=== PATIENT | female | born 1940 | race Caucasian/White ===

== ENCOUNTER 2017-06-25 10:46 | Day surgery (SDC) | payer MEDICARE, OTHER ==
[2017-06-25] VITALS (13 sets, daily range): BP systolic 101–130; BP diastolic 40–82
[~2017-06-25] VITALS: Ht 167.6 cm; Wt 78.6 kg
[2017-06-25] MEDS ORDERED: MESSAGE TO PHARMACY PO ONE (11:20)
[2017-06-25] MEDS ORDERED: nitroGLYCERIN 0.4mg SUBLingual tab SL PRN (11:20)
[2017-06-25] MEDS ORDERED: diphenhydrAMINE 25mg capsule PO PRN (11:20)
[2017-06-25] MEDS ORDERED: normal saline 1000ml 1,000 ML IV SCH ×2 (11:20→13:50)
[2017-06-25] MEDS ORDERED: insulin Lispro (HumaLOG) vial - multi-dose SQ SCH (11:20)
[2017-06-25] MEDS ORDERED: LORazepam 0.5 MG tablet PO PRN (11:20)
[2017-06-25] MEDS ORDERED: dextrose 50%-water 50ml dispensing syringe IV PRN ×2 (11:20)
[2017-06-25] MEDS ORDERED: glucagon, human recombinant 1mg kit SUBCUT PRN (11:20)
[2017-06-25] MEDS ORDERED: dextrose ORAL solution 15 GM/59 ML bottle PO PRN ×2 (11:20)
[2017-06-25] MEDS ORDERED: LIDOcaine 1% (10mg/ml) 2ml vial SQ ONE (11:30)
[2017-06-25] MEDS ORDERED: midazolam 2 mg/2 ml injection ONE (12:00)
[2017-06-25] MEDS ORDERED: iohexol 350 MG/ML 50ML vial IV ONE (12:00)
[2017-06-25] MEDS ORDERED: fentaNYL/PF 50MCG/1 ML 2ML syringe ONE (12:00)
[2017-06-25] MEDS ORDERED: iohexol 350MG/ML 100ml bottle IV ONE (12:00)
[2017-06-25] MEDS ORDERED: LIDOcaine 1% 30ml preserv. free vial ONE (12:02)
[2017-06-25] MEDS ORDERED: ODANSETRON PO (12:28)
[2017-06-25] MEDS ORDERED: FURO-150 PO (12:28)
[2017-06-25] MEDS ORDERED: METH2.5T PO (12:28)
[2017-06-25] MEDS ORDERED: ZINC PO (12:28)
[2017-06-25] MEDS ORDERED: COU1T PO (12:28)
[2017-06-25] MEDS ORDERED: GABA-532 PO (12:28)
[2017-06-25] MEDS ORDERED: MAG PO (12:28)
[2017-06-25] MEDS ORDERED: AMIT-189 PO (12:28)
[2017-06-25] MEDS ORDERED: POTA10TA19 PO (12:28)
[2017-06-25] MEDS ORDERED: CHOL10002 PO (12:28)
[2017-06-25] MEDS ORDERED: LEVO250T58 PO (12:28)
[2017-06-25] MEDS ORDERED: SIMV10TA2 PO (12:28)
[2017-06-25] MEDS ORDERED: RAME8TAB15 PO (12:28)
[2017-06-25] MEDS ORDERED: [UNRECOGNIZED DRUG - OTHER] IV (12:28)
[2017-06-25] MEDS ORDERED: TRAM50TA2 PO (12:28)
[2017-06-25] MEDS ORDERED: METF500T PO (12:28)
[2017-06-25] MEDS ORDERED: DOXY100C2 PO (12:28)
[2017-06-25] MEDS ORDERED: CYAN100070 PO (12:28)
[2017-06-25] MEDS ORDERED: SPIR100T3 PO (12:28)
[2017-06-25] MEDS ORDERED: FOLI0.4T2 PO (12:28)
[2017-06-25] MEDS ORDERED: IRON PO (12:28)
[2017-06-25] MEDS ORDERED: ASCO500C15 PO (12:28)
[2017-06-25] MEDS ORDERED: CAL PO (12:28)
[2017-06-25] MEDS ORDERED: OXAZEpam 15mg capsule PO PRN (13:50)
[2017-06-25] MEDS ORDERED: HYDROcodone/acetaminophen 10/325mg tab PO PRN (13:50)
[2017-06-25] MEDS ORDERED: proCHLORperazine 10 MG/2 ml inj IV PRN (13:50)
[2017-06-25] MEDS ORDERED: HYDROcodone/acetaminophen 5mg/325mg tablet PO PRN (13:50)
[2017-06-25] MEDS ORDERED: ondansetron/PF 4mg/2ml inj IV PRN (13:50)
[2017-06-25] MEDS ORDERED: insulin glargine (Lantus) pen - multi-dose SQ SCH (21:00)
== END 2017-06-25 19:30 | disposition home or self-care (01) ==
LOC: SSTAY O 10:46
PROVIDERS: ATTEND Internal Medicine Cardiovascular Disease
DX: I25.10 Atherosclerotic heart disease of native coronary artery without angina pectoris (principal); I34.8 Other nonrheumatic mitral valve disorders; E11.9 Type 2 diabetes mellitus without complications; I44.7 Left bundle-branch block, unspecified; I10 Essential (primary) hypertension; E78.5 Hyperlipidemia, unspecified; M06.9 Rheumatoid arthritis, unspecified; E03.9 Hypothyroidism, unspecified; G89.29 Other chronic pain; Z96.652 Presence of left artificial knee joint; Z86.711 Personal history of pulmonary embolism; Z72.89 Other problems related to lifestyle; Z90.711 Acquired absence of uterus with remaining cervical stump; Z79.84 Long term (current) use of oral hypoglycemic drugs; Z96.641 Presence of right artificial hip joint; Z95.5 Presence of coronary angioplasty implant and graft; Z79.891 Long term (current) use of opiate analgesic; Z79.01 Long term (current) use of anticoagulants; Z88.5 Allergy status to narcotic agent; Z88.1 Allergy status to other antibiotic agents; Z90.89 Acquired absence of other organs; Z86.14 Personal history of Methicillin resistant Staphylococcus aureus infection; Z79.2 Long term (current) use of antibiotics; Z98.890 Other specified postprocedural states; Z79.899 Other long term (current) drug therapy
CPT/HCPCS: 82948; 93458; 99152; 99153; A6257; C1760; C1769; J1644; J2250; J3010; J3490; J7030; Q0163; Q9967; A4620; J1815